=== PATIENT | female | born 1965 | race Two or more races ===

== ENCOUNTER → 2017-01-01 | Outpatient (CLI) | payer SELFPAY ==
--- NOTE | 2017-01-01 16:15 | KCIC ---
EXAM: Cervical spine, 4 views. HISTORY: Pain. COMPARISON: None. FINDINGS: Frontal, lateral and odontoid views of the cervical spine are obtained. There is mild cervical kyphosis centered at C5-C6. There is degenerative endplate remodeling with disc space narrowing and spurring at this level. The vertebral bodies are normal in height. No suspicious osseous lesion is seen. IMPRESSION: Degenerative change at C5-C6. Electronically signed by: Katelin Nassar MD (01/01/2017 4:11 PM) [id number]
== END | disposition home or self-care (01) ==
LOC: KCIC 15:43
DX: M50.322 Other cervical disc degeneration at C5-C6 level (principal)
CPT/HCPCS: 72040